=== PATIENT | male | born 1995 | race Hispanic/Latino ===

== ENCOUNTER → 2017-12-05 | Outpatient (CLI) | payer OTHER ==
[~2017-12-05] MED LIST: CONRAY-43 43% 50ML VIAL (Q9960) As Ordered; LIDOCAINE 1% MDV 20ML VIAL As Ordered; TRIAMCINOLONE ACETONIDE SUSP 40 MG/ML VIAL (J3301) As Ordered
== END ==
LOC: M RADPRO 10:24
DX: M25.551 Pain in right hip (principal)
CPT/HCPCS: 20611

== ENCOUNTER → 2018-04-28 | Outpatient (CLI) | payer OTHER | LOC: M RADPRO 09:27 | DX: M25.552 Pain in left hip (principal) | CPT/HCPCS: 20610 ==